=== PATIENT | male | born 1960 | race Caucasian/White ===

== ENCOUNTER → 2017-02-21 | Outpatient (CLI) | payer OTHER ==
[~2017-02-21] MED LIST: ASPIR-LOW81 MG PO; FISH OIL500 MG PO; GLUCOPHAGE500 MG/TAB PO; K-DUR 10 MEQ T10 MEQ PO; LASIX 40MG TABL40 MG PO; POTASSIUM CH2 MEQ/ML; ZOCOR40 MG PO; ZYLOPRIM 300MG300 MG PO; ZYRTEC 10MG
== END ==
LOC: COL.RAD 09:53
DX: M75.01 Adhesive capsulitis of right shoulder (principal)
CPT/HCPCS: J3301; Q9967

== ENCOUNTER 2019-05-09 23:35 | Emergency (ER) | payer BC ==
[~2019-05-09] VITALS: Ht 167.6 cm; Wt 199.1 kg
[2019-05-09 23:45] VITALS: TEMP 98.4
[2019-05-10] MEDS ORDERED: PRINIVIL20 MG PO (00:46)
[2019-05-10] MEDS ORDERED: LIPITOR 40MG TA40 MG PO (00:47)
[2019-05-10] MEDS ORDERED: ZYRTEC 10MG10 MG PO (00:47)
[2019-05-10] MEDS ORDERED: PHENTERMINE15 MG PO (00:49)
[2019-05-10 00:59] LABS: BASO # 0.1 (0.0-0.2); BASO % 0.4 % (0.0-2.0); EOS # 0.2 (0.0-0.7); EOS % 1.4 % (0-4.0); GRAN # 7.6 (1.4-6.5); GRAN % 65.1 % (42.2-75.2); HEMATOCRIT 45.2 % (42.0-52.0); HEMOGLOBIN 14.9 g/dl (13.5-18.0); LYMPH # 2.7 (1.2-3.4); LYMPH % 22.8 % (20.0-51.0); MEAN CELL VOLUME 92 fl (80.0-100.0); MEAN CORPUSCULAR HEMOGLOBIN 30 pg (27.0-31.0); MEAN CORPUSCULAR HGB CONC 33 g/dl (33.0-37.0); MEAN PLATELET VOLUME 10.7 fl (7.4-10.4); MONO # 1.2 (0.1-0.6); MONO % 9.8 % (1.7-9.3); PLATELET COUNT 199 K/mm3 (130-400); RED BLOOD COUNT 4.91 M/mm3 (4.20-5.60); REDCELL DISTRIBUTION WIDTH-CV 13.6 % (11.5-14.5)
[2019-05-10 01:13] LABS: COLLECTION METHOD CLEAN CATCH
[2019-05-10 01:15] LABS: BILIRUBIN,TOTAL 0.6 mg/dL (0.0-1.0); C-REACTIVE PROTEIN 0.8 mg/dL (0.0-0.9); CALCIUM 9.5 mg/dL (8.4-10.2); CREATININE, serum 1.26 (0.66-1.25); TOTAL PROTEIN 7.5 gm/dL (6.4-8.2)
[2019-05-10 01:18] LABS: PH 5 (5-8); SQUAMOUS EPITHELIAL None Seen /hpf; URINE APPEARANCE Clear; URINE BACTERIA None Seen /hpf; URINE BILIRUBIN Negative (NEGATIVE); URINE BLOOD Negative (NEGATIVE); URINE COLOR Yellow; URINE GLUCOSE Negative (NEGATIVE); URINE KETONE Negative (NEGATIVE); URINE LEUKOCYTE ESTERASE Negative (NEGATIVE); URINE NITRATE Negative (NEGATIVE); URINE PROTEIN(semi-quant) Negative (NEGATIVE); URINE RBC 0-2 /hpf; URINE UROBILINOGEN Negative (NEGATIVE)
[2019-05-10 01:27] LABS: POTASSIUM 3.6 mmol/L (3.4-5.0)
[2019-05-10] MEDS ORDERED: AMOXICILLIN 8751 TAB PO (03:24)
[2019-05-10] MEDS ORDERED: ZOFRAN ODT4 MG PO (03:24)
[2019-05-10 03:47] VITALS: BP 133/69; PULSE 73
== END 2019-05-10 03:48 | disposition home or self-care (01) ==
LOC: COL.ER 23:35
PROVIDERS: Physician Assistant
DX: K57.92 Diverticulitis of intestine, part unspecified, without perforation or abscess without bleeding (principal); E78.5 Hyperlipidemia, unspecified; I10 Essential (primary) hypertension; Z79.84 Long term (current) use of oral hypoglycemic drugs; Z79.82 Long term (current) use of aspirin
CPT/HCPCS: J1885; J2405; J7040; Q9967

== ENCOUNTER → 2019-07-10 | Outpatient (CLI) | payer BC ==
[~2019-07-10] MED LIST changes: +AMOXICILLIN 8751 TAB PO; +LIPITOR 40MG TA40 MG PO; +PHENTERMINE15 MG PO; +PRINIVIL20 MG PO; +ZOFRAN ODT4 MG PO; +ZYRTEC 10MG10 MG PO
== END ==
LOC: ZCOL.LAB 13:20
DX: R10.30 Lower abdominal pain, unspecified (principal)

== ENCOUNTER 2019-10-25 17:52 | Emergency (ER) | payer BC ==
[~2019-10-25] VITALS: Ht 167.6 cm; Wt 188.6 kg
[2019-10-25 18:02] VITALS: BP 128/76; TEMP 99.6
[2019-10-25] MEDS ORDERED: HYGROTON 2525 MG/TAB (18:18)
[2019-10-25 19:00] LABS: HEMATOCRIT 47.1 % (42.0-52.0); HEMOGLOBIN 15.6 g/dl (13.5-18.0); MEAN CELL VOLUME 92 fl (80.0-100.0); MEAN CORPUSCULAR HEMOGLOBIN 31 pg (27.0-31.0); MEAN CORPUSCULAR HGB CONC 33 g/dl (33.0-37.0); MEAN PLATELET VOLUME 10.5 fl (7.4-10.4); PLATELET COUNT 192 K/mm3 (130-400); RED BLOOD COUNT 5.12 M/mm3 (4.20-5.60); REDCELL DISTRIBUTION WIDTH-CV 13.6 % (11.5-14.5)
[2019-10-25 19:18] LABS: ALBUMIN 4.6 gm/dL (3.5-5.0); BILIRUBIN,TOTAL 0.6 mg/dL (0.0-1.0); C-REACTIVE PROTEIN 1.8 mg/dL (0.0-0.9); CREATININE, serum 1.46 (0.66-1.25); POTASSIUM 3.6 mmol/L (3.4-5.0); TOTAL PROTEIN 8.7 gm/dL (6.4-8.2)
[2019-10-25] MEDS ORDERED: FLAGYL500 MG PO (19:37)
[2019-10-25] MEDS ORDERED: LEVAQUIN 750MG750 M1 PO (19:37)
[2019-10-25] MEDS ORDERED: TAMIFLU 75MG75 MG PO (19:37)
[2019-10-25 20:19] VITALS: PULSE 89
[2019-10-25 20:35] LABS: BAND 12 % (0-10); LYMPHOCYTE 14 % (20.0-51.0); NEUTROPHILS 54 % (42.0-75.2)
[2019-10-25 20:36] LABS: PLATELET ESTIMATE NORMAL (NORMAL)
== END 2019-10-25 20:19 | disposition home or self-care (01) ==
LOC: COL.ER 17:52
PROVIDERS: Emergency Medicine
DX: K57.92 Diverticulitis of intestine, part unspecified, without perforation or abscess without bleeding (principal); J10.1 Influenza due to other identified influenza virus with other respiratory manifestations; I10 Essential (primary) hypertension; E66.01 Morbid (severe) obesity due to excess calories; Z98.890 Other specified postprocedural states; Z79.82 Long term (current) use of aspirin; Z79.84 Long term (current) use of oral hypoglycemic drugs; Z68.44 Body mass index [BMI] 60.0-69.9, adult
CPT/HCPCS: J7030

== ENCOUNTER 2020-03-25 08:48 | Day surgery (SDC) | payer BC ==
[~2020-03-25] VITALS: Ht 167.6 cm; Wt 190.3 kg
[~2020-03-25 08:48] MED LIST changes: +FLAGYL500 MG PO; +HYGROTON 2525 MG/TAB; +LEVAQUIN 750MG750 M1 PO; +TAMIFLU 75MG75 MG PO
[2020-03-25 09:20] VITALS: BP 118/71; PULSE 71; TEMP 97.8
[2020-03-25] MEDS ORDERED: GLUCOPHAGE XR500 M1 PO (09:23)
[2020-03-25] MEDS ORDERED: PRINIVIL20 MG PO (09:23)
[2020-03-25] MEDS ORDERED: ZYLOPRIM 300MG300 MG PO (09:24)
[2020-03-25] MEDS ORDERED: HYGROTON50 MG PO (09:24)
[2020-03-25] MEDS ORDERED: LIPITOR 40MG TA40 MG PO (09:25)
[2020-03-25] MEDS ORDERED: ZYRTEC 10MG10 MG PO (09:26)
[2020-03-25] MEDS ORDERED: PROAIR HFA0.09 MG/AC IH (09:27)
[2020-03-25] MEDS ORDERED: K-DUR20 MEQ PO (09:28)
[2020-03-25] MEDS ORDERED: EPA FISH OIL1 SGL PO (09:28)
[2020-03-25] MEDS ORDERED: THE MEDICINE S200 M2 PO (09:28)
[2020-03-25] MEDS ORDERED: ASPIRIN 81M81 MG/TA2 PO (09:30)
--- NOTE | 2020-03-25 09:32 | NUR ---
TO RM AT 0855- CALL LIGHT IN REACH
[2020-03-25 11:25] VITALS: BP 118/78; PULSE 84; TEMP 97.3
--- NOTE | 2020-03-25 11:37 | NUR ---
1135 ARRIVED TO [facility] [place] [facility] VIA CART. PATIENT ALERT AND ORIENTED. VSS. REPORT AND CARE OF PATIENT RECIEVED FROM QUINCY GERARD. PATIENT REQUESTED [employer] WITH PEANUT BUTTER AND DIET PEPSI.
[2020-03-25 11:40] VITALS: BP 103/60; PULSE 82
[2020-03-25 11:55] VITALS: BP 109/73; PULSE 82
--- NOTE | 2020-03-25 12:23 | NUR ---
1140 PATIENT TOLERATING PO. REQUESTED ANOTHER DIET PEPSI. DENIES COMPLAINT. A&O X 4. 1155 TOLERATED PO WELL. IV DISCONTINUED. CATHETER TIP INTACT. WASTED 500ML OF LR. PATIENT TOLERATED WELL. DISCHARGE INSTRUCTIONS/INFORMATION GIVEN IN WRITTEN AND VERBAL FORM. PATIENT VERBALIZED UNDERSTANDING. 1205 DISCHARGED TO POV VIA W/C WITH .
== END 2020-03-25 12:05 | disposition home or self-care (01) ==
LOC: SDCO 08:48
DX: Z12.11 Encounter for screening for malignant neoplasm of colon (principal); K63.5 Polyp of colon; E11.9 Type 2 diabetes mellitus without complications; Z79.84 Long term (current) use of oral hypoglycemic drugs; E66.01 Morbid (severe) obesity due to excess calories; Z68.45 Body mass index [BMI] 70 or greater, adult; G47.33 Obstructive sleep apnea (adult) (pediatric); I25.10 Atherosclerotic heart disease of native coronary artery without angina pectoris; I10 Essential (primary) hypertension; I27.20 Pulmonary hypertension, unspecified; E78.5 Hyperlipidemia, unspecified; M10.9 Gout, unspecified; E87.6 Hypokalemia; M17.0 Bilateral primary osteoarthritis of knee; N52.03 Combined arterial insufficiency and corporo-venous occlusive erectile dysfunction; Z79.82 Long term (current) use of aspirin; Z79.899 Other long term (current) drug therapy; Z80.0 Family history of malignant neoplasm of digestive organs; Z83.3 Family history of diabetes mellitus
CPT/HCPCS: J0330; J2704; J7120

== ENCOUNTER 2020-04-30 09:56 | Day surgery (SDC) | payer BC ==
[~2020-04-30] VITALS: Ht 167.6 cm; Wt 191.4 kg
[2020-04-30 09:41] VITALS: BP 96/63; PULSE 50
--- NOTE | 2020-04-30 09:41 | NUR ---
Resting and sipping on water.
[2020-04-30 09:56] VITALS: BP 106/68; PULSE 48
[~2020-04-30 09:56] MED LIST changes: +ASPIRIN 81M81 MG/TA2 PO; +EPA FISH OIL1 SGL PO; +GLUCOPHAGE XR500 M1 PO; +HYGROTON50 MG PO; +K-DUR20 MEQ PO; +PROAIR HFA0.09 MG/AC IH; +THE MEDICINE S200 M2 PO
--- NOTE | 2020-04-30 09:56 | NUR ---
IV discontinued and site is free of redness. Denies pain or nausea.
--- NOTE | 2020-04-30 10:01 | NUR ---
Assisted up to the bathroom and is able to void and returns to the room.
--- NOTE | 2020-04-30 10:04 | NUR ---
Patient dresses self and is eating applesauce. Awaits ride home.
[2020-04-30 10:19] VITALS: BP 140/72; PULSE 84; TEMP 97.1
--- NOTE | 2020-04-30 10:30 | NUR ---
Dismissal instructions given and voices understanding of these. Provided office number for questions and concerns.
--- NOTE | 2020-04-30 10:34 | NUR ---
Patient dismissed to home driven by friend and taken to the front door per wheelchair and assisted into vehicle driven with instructions in hand.
[2020-04-30 12:10] VITALS: BP 121/102; PULSE 80
--- NOTE | 2020-04-30 12:10 | NUR ---
Patient returns to room 1 per cart from surgery after having colonoscopy and is awake and alert. Temp 98.9 and room air sats 94%. Denies pain or nausea. Eating toast and drinking juice.
[2020-04-30 12:25] VITALS: BP 104/60; PULSE 78
--- NOTE | 2020-04-30 12:25 | NUR ---
Continues to deny pain or nausea.
[2020-04-30 12:40] VITALS: BP 109/62; PULSE 78
--- NOTE | 2020-04-30 12:55 | NUR ---
IV discontinued and site is free of redness. Patient dresses self.
--- NOTE | 2020-04-30 13:05 | NUR ---
Dismissal instructions given and voices understanding of these. Patient dismissed to home driven by spouse and taken to the front door per wheelchair and assisted into car with instructions in hand.
== END 2020-04-30 13:05 | disposition home or self-care (01) ==
LOC: SDCO 09:56
DX: K63.5 Polyp of colon (principal); E11.9 Type 2 diabetes mellitus without complications; J45.909 Unspecified asthma, uncomplicated; E66.01 Morbid (severe) obesity due to excess calories; G47.33 Obstructive sleep apnea (adult) (pediatric); I10 Essential (primary) hypertension; I25.10 Atherosclerotic heart disease of native coronary artery without angina pectoris; M10.9 Gout, unspecified; E78.5 Hyperlipidemia, unspecified; E87.6 Hypokalemia; M19.90 Unspecified osteoarthritis, unspecified site; Z79.899 Other long term (current) drug therapy; Z20.828 Contact with and (suspected) exposure to other viral communicable diseases; Z79.82 Long term (current) use of aspirin; Z68.44 Body mass index [BMI] 60.0-69.9, adult; Z79.84 Long term (current) use of oral hypoglycemic drugs
CPT/HCPCS: J2704

== ENCOUNTER 2021-05-20 08:13 | Day surgery (SDC) | payer BC ==
[~2021-05-20] VITALS: Ht 167.6 cm; Wt 199.4 kg
[2021-05-20 09:52] VITALS: BP 130/67; PULSE 71; TEMP 98.3
[2021-05-20 10:40] VITALS: BP 137/68; PULSE 78; TEMP 97
--- NOTE | 2021-05-20 10:40 | NUR ---
Patient returned to bay 2 via cart. Alert and oriented. Postop vitals started. Denies pain and N/V. Sprite and muffin provided.
[2021-05-20 10:55] VITALS: BP 123/82; PULSE 77
[2021-05-20 10:58] VITALS: TEMP 97.5
[2021-05-20 11:10] VITALS: BP 132/75; PULSE 71
--- NOTE | 2021-05-20 11:10 | NUR ---
Patient high [place] in bed. Alert and oriented. Denies discomfort. D/C IV with no complications. Reviewed discharge instruction and educational material. Physician OK to discharge. Instructed to dress and open door when ready.
--- NOTE | 2021-05-20 12:00 | NUR ---
Patient transfered via wheelchair to personal vehicle accompanied by for ride home.
[2021-05-20] MEDS ORDERED: MASON NATURAL2000 IU PO (12:12)
[2021-05-20] MEDS ORDERED: ESTER C PO (12:14)
[2021-05-20] MEDS ORDERED: VIAGRA 25MG TAB25 MG (12:15)
--- NOTE | 2021-05-20 12:43 | NUR ---
Patient high fowlers in bed. Alert and oriented. Denies discomfort.Tolerating food and drink well.
== END 2021-05-20 12:00 | disposition home or self-care (01) ==
LOC: SDCO 08:13
DX: Z12.11 Encounter for screening for malignant neoplasm of colon (principal); K57.30 Diverticulosis of large intestine without perforation or abscess without bleeding; I25.10 Atherosclerotic heart disease of native coronary artery without angina pectoris; I10 Essential (primary) hypertension; I27.20 Pulmonary hypertension, unspecified; E78.5 Hyperlipidemia, unspecified; E11.9 Type 2 diabetes mellitus without complications; E66.01 Morbid (severe) obesity due to excess calories; G47.33 Obstructive sleep apnea (adult) (pediatric); J30.9 Allergic rhinitis, unspecified; M10.9 Gout, unspecified; M19.90 Unspecified osteoarthritis, unspecified site; Z86.010 Personal history of colon polyps; Z68.41 Body mass index [BMI] 40.0-44.9, adult; Z99.89 Dependence on other enabling machines and devices; Z20.822 Contact with and (suspected) exposure to COVID-19; Z79.899 Other long term (current) drug therapy
CPT/HCPCS: J2704; J7030

== ENCOUNTER 2024-06-27 06:48 | Day surgery (SDC) | payer BC ==
[~2024-06-27] VITALS: Ht 167.6 cm; Wt 178.9 kg
[~2024-06-27 06:48] MED LIST changes: +ESTER C PO; +LR 1,000 ML IV SCH; +MASON NATURAL2000 IU PO; +Ondansetron 4 MG/2 ML VIAL IV PRN; +VIAGRA 25MG TAB25 MG
--- NOTE | 2024-06-27 08:15 | NUR ---
PLACED PT ON BIPAP 27/04 100% FOR COLONOSCOPY. THIS RT BESIDE DURING PROCEDURE
[2024-06-27 08:40] VITALS: BP 162/98; PULSE 68; TEMP 97.1
--- NOTE | 2024-06-27 08:40 | NUR ---
PATIENT AMBULATED TO CHAIR WITH STEADY GAIT, ASSIST OF 2. ALERT AND AWAKE. DENIES PAIN, NAUSEA AND SHORTNESS OF BREATH. BREATHING REGULAR AND UNLABORED ON ROOM AIR. SKIN WARM AND DRY. IV IN PLACE. NURSE HANDOFF COMPLETED IN ROOM. SEE CHART FOR VITAL SIGNS. PATIENT HAD WATER, DIET PEPSI AND A MUFFIN. BOTH FOOD AND DRINK TOLERATED WELL. NO DYSPHAGIA. CALL LIGHT IN REACH.
[2024-06-27 08:45] VITALS: BP 147/91; PULSE 69
[2024-06-27 09:04] VITALS: BP 148/86; PULSE 70
--- NOTE | 2024-06-27 09:10 | NUR ---
0856: DISCHARGE TEACHING COMPLETED WITH PRINTED EDUCATION AND INSTRUCTIONS SENT HOME WITH PATIENT. PATIENT VERBALIZED UNDERSTANDING OF TEACHING. 0858: DR. PITTMAN MET WITH PATIENT IN ROOM TO DISCUSS PROCEDURE. 0905: IV REMOVED. GAUZE AND COBAN PLACED OVER SITE. 0910: PATIENT DISCHARGED HOME WITH [facility].
[2024-06-27 13:31] VITALS: BP 134/95; PULSE 68; TEMP 98
== END 2024-06-27 09:10 | disposition home or self-care (01) ==
LOC: SDCO 06:48
DX: Z12.11 Encounter for screening for malignant neoplasm of colon (principal); K57.30 Diverticulosis of large intestine without perforation or abscess without bleeding; G47.33 Obstructive sleep apnea (adult) (pediatric); E66.01 Morbid (severe) obesity due to excess calories; Z86.0100 Personal history of colon polyps, unspecified; Z99.89 Dependence on other enabling machines and devices; Z68.41 Body mass index [BMI] 40.0-44.9, adult; Z79.82 Long term (current) use of aspirin
CPT/HCPCS: J2704; J7120